=== PATIENT | female | born 1995 | race Caucasian/White ===

== ENCOUNTER 2018-10-24 14:05 | Emergency (ER) | payer OTHER ==
--- NOTE | 2018-10-24 14:19 | Emergency Department Report ---
Blank Doc - Documentation Documentation: 23 y/o female c/o lower abd pain, Nausea and vomiting. Miss 2. No fever.
[2018-10-24 15:37] LABS: Bilirubin,Urine NEG (Negative); Blood,Urine NEG (Negative); Color,Urine Yellow (Yellow); Mucus,Urine 2+ /HPF; Protein,Urine <15 mg/dL mg/dL (Negative); Urobilinogen,Urine < 2.0 mg/dL (<2.0)
--- NOTE | 2018-10-24 15:47 | Emergency Department Report ---
HPI - General Chief Complaint: Nausea/Vomiting/Diarrhea Time Seen by Provider: 10/24/18 15:17 - HPI HPI: 23-year-old female presents to the emergency department with a 4 day history of some lower abdominal pain, nausea and vomiting. The patient states that she may be as her last menstrual cycle was in August. If she is she will be with 2 previous miscarriages. Otherwise she denies any past medical history. No recent travel or sick contacts at home. She denies any fever, vaginal bleeding or discharge, dysuria but does have some diarrhea. She has not taken anything for her symptoms prior to arrival today. ED Past Medical Hx - Past Medical History Previous Medical History?: No - Surgical History Past Surgical History?: No - Social History Smoking Status: Never Smoker ED Review of Systems ROS: Stated complaint: VOMITTING/LOWER ABD PAIN Other details as noted in HPI Comment: All other systems reviewed and negative Constitutional: denies: chills, fever Eyes: denies: eye pain, vision change ENT: denies: ear pain, throat pain Respiratory: denies: cough, shortness of breath Cardiovascular: denies: chest pain, palpitations Gastrointestinal: abdominal pain, nausea, vomiting, diarrhea Genitourinary: denies: dysuria, discharge Musculoskeletal: denies: back pain, arthralgia Skin: denies: rash, lesions Neurological: denies: headache, weakness Physical Exam - Physical Exam Vital Signs: Vital Signs 10/24/18 10/24/18 14:23 15:24 Temperature 98.0 F 98.1 F Pulse Rate 81 Respiratory 16 Rate Blood Pressure 119/58 O2 Sat by Pulse 99 Oximetry Physical Exam: GENERAL: The patient is well-developed well-nourished. HENT: Normocephalic. Atraumatic. Patient has moist mucous membranes. EYES: Extraocular motions are intact. NECK: Supple. Trachea is midline. CHEST/LUNGS: Clear to auscultation. There is no respiratory distress noted. HEART/CARDIOVASCULAR: Regular. There is no tachycardia. There is no murmur. ABDOMEN: Abdomen is soft. There is some mid to lower abdominal tenderness to palpation. No guarding. Patient has normal bowel sounds. There is no abdominal distention. SKIN: Skin is warm and dry. NEURO: The patient is awake, alert, and oriented. The patient is cooperative. The patient has no focal neurologic deficits. The patient has normal speech. MUSCULOSKELETAL: There is no tenderness or deformity. There is no limitation range of motion. There is no evidence of acute injury. ED Course Vital Signs 10/24/18 10/24/18 14:23 15:24 Temperature 98.0 F 98.1 F Pulse Rate 81 Respiratory 16 Rate Blood Pressure 119/58 O2 Sat by Pulse 99 Oximetry ED Medical Decision Making - Lab Data Result diagrams: 10/24/18 15:47 10/24/18 15:47 - Radiology Data Radiology results: report reviewed Transvaginal/ ultrasound shows a live intrauterine at about 8 weeks and 4 days. There is a small left ovarian cyst that could be consistent with a corpus luteum. - Medical Decision Making Patient presents to the emergency department with complaint of abdominal pain, n ausea, vomiting and suspicion of being . The patient was correct and she had a beta hCG of greater than 120,000. An ultrasound was done that shows a live intrauterine at about 8.5 weeks and a corpus luteum cyst or small left ovarian cyst. Patient's labs have otherwise been unremarkable. Vital signs stable throughout her ED course including being afebrile. There are no complaints of any dysuria, vaginal bleeding or vaginal discharge. The patient did not receive any antiemetics and there has been no further vomiting while in the emergency department. She was able to pass oral challenge. She appears safe for discharge home at this time and has been given multiple outpatient [facility] referrals. She will return to the ER with any worsening of her symptoms or any acute distress. - Differential Diagnosis , colitis, UTI, fibroids Critical Care Time: No Critical care attestation.: If time is entered above; I have spent that time in minutes in the direct care of this critically ill patient, excluding procedure time. ED Disposition Clinical Impression: Nausea & vomiting Qualifiers: Vomiting type: unspecified Vomiting Intractability: unspecified Qualified Code(s): R11.2 - Nausea with vomiting, unspecified Abdominal pain Qualifiers: Abdominal location: lower abdomen, unspecified Qualified Code(s): R10.30 - Lower abdominal pain, unspecified Qualifiers: Weeks of gestation: 8 weeks Qualified Code(s): Z3A.08 - 8 weeks gestation of Disposition: DC-01 TO HOME OR SELFCARE Is pt being admited?: No Condition: Stable Instructions: (ED), Acute Nausea and Vomiting (ED), Abdominal Pain (ED) Additional Instructions: Please follow up with an [facility] in the next few days. Return to the emergency Department with any worsening of your symptoms or any acute distress. Referrals: [facility] [Provider Group] - 3-5 Days [facility] [Provider Group] - 3-5 Days [facility] [Provider Group] - 3-5 Days [facility] [Provider Group] - 3-5 Days Time of Disposition: 18:40 Print Language: MONTENEGRIN
[2018-10-24 16:05] LABS: Basophils % (Auto) 0.4 % (0.0-1.8); Eosinophils # (Auto) 0.1 K/mm3 (0.0-0.4); Eosinophils % (Auto) 1.3 % (0.0-4.3); Hematocrit 40.7 % (30.3-42.9); Hemoglobin 13.5 gm/dl (10.1-14.3); Lymphocytes # (Auto) 1.8 K/mm3 (1.2-5.4); Lymphocytes % (Auto) 20.2 % (13.4-35.0); Mean Corpuscular HGB Conc 33 % (30-34); Mean Corpuscular Volume 91 fl (79-97); Monocytes # (Auto) 0.6 K/mm3 (0.0-0.8); Monocytes % (Auto) 7.2 % (0.0-7.3); Platelet Count 347 K/mm3 (140-440); Red Blood Count 4.48 M/mm3 (3.65-5.03)
[2018-10-24 16:35] LABS: Alanine Aminotransferase 14 units/L (7-56); Albumin 4.2 g/dL (3.9-5); BUN/Creatinine Ratio 28; Blood Urea Nitrogen 11 mg/dL (7-17); Calcium 9.3 mg/dL (8.4-10.2); Hemolysis Index 5
--- NOTE | 2018-10-24 18:04 | Ultrasound Report ---
PROCEDURE: US OB TRANSVAGINAL TECHNIQUE: Real-time transvaginal sonography of the uterus, placenta, amniotic fluid, adnexa, and fe tus was performed with image documentation. Measurements were obtained to determine age/size. M -mode Doppler was used to document heartbeat. HISTORY: abdominal pain, COMPARISONS: Transabdominal OB ultrasound . FINDINGS: This report was generated using images from both transvaginal and transabdominal OB ultraso und both which were performed today. There is a single living intrauterine gestation present with heart rate of 176 bpm. Fetus curre ntly too small to assess anatomy. No gross abnormalities visualized. [place]-rump length measurement 2 cm corresponds to an age of 8 weeks 4 days. The sac is visualized. Amount of amniotic fluid appears n ormal. No evidence of subchorionic hemorrhage. No uterine masses are identified. Right ovary is unremarkable measuring 2.7 x 1.0 x 2.8 cm. Left ovary measures 3.9 x 2.3 x 2.3 cm. 1.6 cm complex cystic lesion visualized left ovary. There appears to be a cyst within a cyst. I suspect this represents corpus luteum cyst of . Left ovary is otherwise unremarkable. IMPRESSION: Single living intrauterine gestation visualized. By [place]-rump length measurement the estimated age i s 8 weeks 4 days. [address] the EDC at 06/01/2019 +/- 0.5 weeks. No evidence of subchorionic hemorrh age. Small cyst visualized left ovary likely representing corpus luteum cyst . Fetus currently too small to assess anatomy. No gross abnormalities seen. Consider follow-up exam at 18-20 weeks to evaluate anatomy. This document is electronically signed by Erickson Carias MD., Oct 24 2018 06:02:50 PM ET
--- NOTE | 2018-10-24 18:06 | Ultrasound Report ---
PROCEDURE: US OB <= 14 WEEKS FETUS TECHNIQUE: Real-time transabdominal sonography of the uterus, placenta, amniotic fluid, adnexa, and fetus was performed with image documentation. Measurements were obtained to determine age/size. M-mode Doppler was used to document heartbeat. ADDITIONAL GESTATION: None. HISTORY: abdominal pain, COMPARISONS: Transvaginal OB ultrasound also performed today. . FINDINGS: This report was generated using images from both transvaginal and transabdominal OB ultraso und both which were performed today. There is a single living intrauterine gestation present with heart rate of 176 bpm. Fetus curre ntly too small to assess anatomy. No gross abnormalities visualized. [place]-rump length measurement 2 cm corresponds to an age of 8 weeks 4 days. The sac is visualized. Amount of amniotic fluid appears n ormal. No evidence of subchorionic hemorrhage. No uterine masses are identified. Right ovary is unremarkable measuring 2.7 x 1.0 x 2.8 cm. Left ovary measures 3.9 x 2.3 x 2.3 cm. 1.6 cm complex cystic lesion visualized left ovary. There appears to be a cyst within a cyst. I suspect this represents corpus luteum cyst of . Left ovary is otherwise unremarkable. IMPRESSION: Single living intrauterine gestation visualized. By crown-rump length measurement the estimated age i s 8 weeks 4 days. This places the EDC at 06/01/2019 +/- 0.5 weeks. No evidence of subchorionic hemorrh age. Small cyst visualized left ovary likely representing corpus luteum cyst . Fetus currently too small to assess anatomy. No gross abnormalities seen. Consider follow-up exam at 18-20 weeks to evaluate anatomy. This document is electronically signed by Erickson Carias MD., Oct 24 2018 06:04:09 PM ET
[2018-10-24 18:33] VITALS: BP 124/59
== END 2018-10-24 18:52 | disposition home or self-care (01) ==
LOC: ED 14:05
DX: O26.891 Other specified pregnancy related conditions, first trimester (principal); Z3A.01 Less than 8 weeks gestation of pregnancy
CPT/HCPCS: 36415; 76801; 76817; 80053; 81001; 83690; 84702; 85025

== ENCOUNTER 2019-03-31 05:09 | Outpatient (CLI) | payer SELFPAY ==
[2019-03-31] MEDS ORDERED: LACTATED RINGERS 1,000 ML IV ONE (06:07)
[2019-03-31 06:44] LABS: Bilirubin,Urine NEG (Negative); Blood,Urine LG (Negative); Color,Urine Red (Yellow); Mucus,Urine FEW /HPF; Urobilinogen,Urine < 2.0 mg/dL (<2.0)
[2019-03-31 06:46] LABS: RBC,Urine > 182.0 /HPF (0.0-6.0)
[2019-03-31] MEDS ORDERED: LACTATED RINGERS 1,000 ML IV SCH (08:00)
[2019-03-31] MEDS ORDERED: ceFAZolin 2 GM in NACL 0.9% 100 ML IV ONE (08:00)
--- NOTE | 2019-03-31 08:05 | Ultrasound Report ---
ULTRASOUND OB LIMITED HISTORY: Vaginal bleeding TECHNIQUE: Transabdominal ultrasound with M-mode and color Doppler imaging. COMPARISON: 10/24/2018. FINDINGS: Single intrauterine is identified in cephalic position. heart rate measures 151 bpm. ABDULLAHI measures 16.2. The placenta is anterior, grade 1 and free of the cervical os. No subplacental collection to suggest abruption is identified. IMPRESSION: Viable, single intrauterine as described. No evidence for abruption. Signer Name: Matt Rossi Jr, MD Signed: 03/31/2019 8:00 AM Workstation Name: [id number]
[2019-03-31] MEDS ORDERED: ANCEF/STERILE WATER 2 GM/20 ML 2 GM/20 ML SYRINGE IV ONE (08:17)
[2019-03-31] MEDS ORDERED: BRETHINE SUB-Q NR (08:24)
[2019-03-31 08:54] VITALS: BP 103/59
== END 2019-03-31 10:00 | disposition home or self-care (01) ==
LOC: TRG 05:09
PROVIDERS: ATTEND Obstetrics & Gynecology
DX: O46.93 Antepartum hemorrhage, unspecified, third trimester (principal); O62.9 Abnormality of forces of labor, unspecified; Z3A.31 31 weeks gestation of pregnancy
CPT/HCPCS: 59025; 76815; 81001; 87086; 96361; 96372; 96374; J0690; J3105; J7120; 96360

== ENCOUNTER 2019-05-26 23:53 | Outpatient (CLI) | payer SELFPAY ==
[2019-05-27 03:29] VITALS: BP 118/67
== END 2019-05-27 03:52 | disposition home or self-care (01) ==
LOC: TRG 23:53
PROVIDERS: ATTEND Obstetrics & Gynecology
DX: O47.1 False labor at or after 37 completed weeks of gestation (principal); Z3A.39 39 weeks gestation of pregnancy
CPT/HCPCS: 59025

== ENCOUNTER 2019-05-27 07:05 | Inpatient (IN) | payer OTHER ==
[2019-05-27] MEDS ORDERED: OXYTOCIN DRIP 30 UNITS/500 ML BAG IV SCH ×2 (08:30→09:00)
[2019-05-27] MEDS ORDERED: MINERAL OIL 30 ML ORAL LIQD PO PRN (08:30)
[2019-05-27] MEDS ORDERED: LIDOCAINE (2%) 20 MG/1 ML VIAL 20 ML MDV INFILTRATI NR (08:30)
[2019-05-27] MEDS ORDERED: TERBUTALINE 1 MG/1 ML INJ IVP PRN (08:30)
[2019-05-27] MEDS ORDERED: ePHEDrine SULFATE 50 MG/1 ML INJ IV PRN ×2 (08:30→10:05)
[2019-05-27] MEDS ORDERED: OXYTOCIN 20 UNIT/1000ML DRIP 20 UNITS/1,000 ML BAG IV SCH ×3 (08:30→23:00)
[2019-05-27] MEDS ORDERED: TERBUTALINE 1 MG/1 ML INJ SUB-Q PRN (09:00)
[2019-05-27] MEDS: LACTATED RINGERS 1,000 ML IV SCH ×3 (09:07→17:46)
--- NOTE | 2019-05-27 09:12 | History and Physical Report ---
History of Present Illness Date of examination: 05/27/19 Date of admission: 05/27/2019 Chief complaint: Contractions at term. History of present illness: . STEVEN[place] 05/31/2019 Past History Past Medical History: no pertinent history - Obstetrical History : 3 Medications and Allergies Allergies Allergy/AdvReac Type Severity Reaction Status Date / Time No Known Allergies Allergy Verified 05/27/19 07:50 Home Medications Medication Instructions Recorded Confirmed Last Taken Type No Known Home Medications [No 05/27/19 05/27/19 Unknown History Reported Home Medications] Active Meds: Active Medications Ephedrine Sulfate (Ephedrine Sulfate) 10 mg IV Q2M PRN PRN Reason: Hypotension Oxytocin/Sodium Chloride (Pitocin/Ns 20 Unit/1000ml Drip) 20 units in 1,000 mls @ 125 mls/hr IV DIRECT ELPIDIO Oxytocin/Sodium Chloride (Pitocin/Ns 30 Unit/500ml) 30 units in 500 mls @ 1 mls/hr IV TITR ELPIDIO; Protocol Oxytocin/Sodium Chloride (Pitocin/Ns 30 Unit/500ml) 30 units in 500 mls @ 2 mls/hr IV TITR ELPIDIO; Protocol Lactated Ringer's (Lactated Ringers) 1,000 mls @ 125 mls/hr IV DIRECT ELPIDIO Last Admin: 05/27/19 09:07 Dose: 125 mls/hr Documented by: Lidocaine (Xylocaine 2%) 20 ml INFILTRATI ONCE NR Stop: 05/28/19 08:29 Mineral Oil (Mineral Oil) 30 ml PO QHS PRN PRN Reason: Constipation Terbutaline Sulfate (Brethine) 0.25 mg SUB-Q ONCE PRN PRN Reason: Hyperstimulation/Hypertonicity Terbutaline Sulfate (Brethine) 0.25 mg IVP ONCE PRN PRN Reason: Hyperstimulation/Hypertonicity Review of Systems All systems: negative - Vital Signs Vital signs: Vital Signs Pulse Pulse Ox 100 H 98 05/27/19 08:39 05/27/19 08:39 Temp Pulse Resp BP Pulse Ox 95 H 94 05/27/19 08:41 05/27/19 08:41 - Physical Exam Breasts: Positive: deferred Lungs: Positive: Normal air movement Abdomen: Positive: soft, distention. Negative: tenderness, guarding Vulva: both: normal Uterus: Positive: normal size, enlarged, normal contour. Negative: tender - Obstetrical FHR: category 1 Uterine Contraction Monitor Mode: External Cervical Dilatation: 6 Cervical Effacement Percentage: 100 station: 0-2 Uterine Contraction Frequency (min): 2-3 Uterine Contraction Pattern: Regular Uterine Contraction Intensity: Strong/Firm Results All other labs normal. Assessment and Plan - Patient Problems (1) Short stature Current Visit: Yes Status: Acute (2) Active labor at term Current Visit: Yes Status: Acute Plan to address problem: Patient was admitted. My impression upon vaginal exam and pelvimetry is of a borderline pelvis in a short-statured patient matched against a fetus in the 8lbs range. Discussed this with patient through a solderer dipper. Will allow 4 hrs to test decent of fetus as long as all other things remain stable.
[2019-05-27 09:27] LABS: Hemoglobin 12.1 gm/dl (10.1-14.3); Mean Corpuscular HGB Conc 34 % (30-34); Mean Corpuscular Volume 90 fl (79-97); Platelet Count 255 K/mm3 (140-440); Red Blood Count 4.02 M/mm3 (3.65-5.03); Red Cell Distribution Width 14.6 % (13.2-15.2)
[2019-05-27] MEDS ORDERED: NALOXONE 2 MG/2 ML INJ IV PRN (10:05)
--- NOTE | 2019-05-27 10:05 | Anesthesia Consultation ---
Anesthesia Consult and Med Hx Date of service: 05/27/19 - Airway Anesthetic Teeth Evaluation: Good ROM Head & Neck: Adequate Mental/Hyoid Distance: Adequate Mallampati Class: Class II Intubation Access Assessment: Good - Pulmonary Exam CTA: Yes - Cardiac Exam Cardiac Exam: RRR - Pre-Operative Health Status ASA Pre-Surgery Classification: ASA2, Emergency Proposed Anesthetic Plan: Epidural - Pulmonary Hx Asthma: No - Cardiovascular System Hx Hypertension: No - Central Nervous System Hx Seizures: No Hx Psychiatric Problems: No - Endocrine Hx Renal Disease: No Hx Hypothyroidism: No Hx Hyperthyroidism: No - Hematic Hx Anemia: No Hx Sickle Cell Disease: No - Other Systems Hx Alcohol Use: No
[2019-05-27] MEDS ORDERED: fentaNYL-BUPIV 2 MCG/ML-0.125% 200 MCG/100 ML BAG EPIDURAL SCH (11:00)
--- NOTE | 2019-05-27 12:32 | Progress Note ---
Assessment and Plan A: IUP @ 39 3/7 Weeks Category I Tracing Protracted Labor GBS Negative P: IUPC placed Start Pitocin Augmentation Multiple Maternal Position Changes Subjective - Subjective Date of service: 05/27/19 Patient reports: other (Resting well under epidural anesthesia) Objective - Vital Signs Vital Signs: Vital Signs - 12hr 05/27/19 05/27/19 05/27/19 08:39 08:41 10:18 Pulse Rate 100 H 95 H 104 H Respiratory Rate Blood Pressure O2 Sat by Pulse 98 94 99 Oximetry 05/27/19 05/27/19 05/27/19 10:23 10:28 10:29 Pulse Rate 94 H 93 H 93 H Respiratory Rate Blood Pressure 123/67 O2 Sat by Pulse 98 98 Oximetry 05/27/19 05/27/19 05/27/19 10:33 10:34 10:37 Pulse Rate 97 H 93 H 81 Respiratory Rate Blood Pressure 118/60 127/62 O2 Sat by Pulse 99 93 Oximetry 05/27/19 05/27/19 05/27/19 10:38 10:40 10:42 Pulse Rate 85 86 77 Respiratory Rate Blood Pressure 116/58 121/63 O2 Sat by Pulse 98 Oximetry 05/27/19 05/27/19 05/27/19 10:43 10:46 10:48 Pulse Rate 93 H 75 92 H Respiratory Rate Blood Pressure 119/62 130/68 O2 Sat by Pulse 97 97 Oximetry 05/27/19 05/27/19 05/27/19 10:49 10:52 10:53 Pulse Rate 77 72 74 Respiratory Rate Blood Pressure 127/65 126/65 O2 Sat by Pulse 96 Oximetry 05/27/19 05/27/19 05/27/19 10:55 10:58 11:01 Pulse Rate 70 80 74 Respiratory Rate Blood Pressure 120/61 114/58 120/64 O2 Sat by Pulse 96 Oximetry 05/27/19 05/27/19 05/27/19 11:03 11:04 11:07 Pulse Rate 76 77 108 H Respiratory Rate Blood Pressure 116/66 108/58 O2 Sat by Pulse 98 Oximetry 05/27/19 05/27/19 05/27/19 11:08 11:09 11:10 Pulse Rate 70 69 73 Respiratory Rate Blood Pressure 115/62 O2 Sat by Pulse 98 94 Oximetry 05/27/19 05/27/19 05/27/19 11:13 11:16 11:18 Pulse Rate 69 78 72 Respiratory Rate Blood Pressure 120/64 125/71 O2 Sat by Pulse 95 97 Oximetry 05/27/19 05/27/19 05/27/19 11:20 11:22 11:23 Pulse Rate 85 77 96 H Respiratory Rate Blood Pressure 114/58 116/68 O2 Sat by Pulse 97 Oximetry 05/27/19 05/27/19 05/27/19 11:26 11:28 11:29 Pulse Rate 72 90 83 Respiratory Rate Blood Pressure 132/64 111/62 O2 Sat by Pulse 99 Oximetry 05/27/19 05/27/19 05/27/19 11:32 11:33 11:34 Pulse Rate 72 74 73 Respiratory Rate Blood Pressure 129/65 127/65 O2 Sat by Pulse 98 Oximetry 05/27/19 05/27/19 05/27/19 11:37 11:38 11:40 Pulse Rate 72 74 75 Respiratory Rate Blood Pressure 131/67 123/67 O2 Sat by Pulse 98 Oximetry 05/27/19 05/27/19 05/27/19 11:43 11:46 11:48 Pulse Rate 73 76 74 Respiratory Rate Blood Pressure 126/72 144/77 O2 Sat by Pulse 98 99 Oximetry 05/27/19 05/27/19 05/27/19 11:49 11:52 11:53 Pulse Rate 75 72 84 Respiratory Rate Blood Pressure 139/70 144/75 O2 Sat by Pulse 97 Oximetry 05/27/19 05/27/19 05/27/19 11:55 11:57 11:58 Pulse Rate 75 74 Respiratory 24 Rate Blood Pressure 132/69 132/69 153/72 O2 Sat by Pulse 99 Oximetry 05/27/19 05/27/19 05/27/19 12:01 12:03 12:05 Pulse Rate 82 83 76 Respiratory Rate Blood Pressure 153/72 134/65 O2 Sat by Pulse 98 Oximetry 05/27/19 05/27/19 05/27/19 12:07 12:08 12:10 Pulse Rate 86 81 79 Respiratory Rate Blood Pressure 135/65 141/71 O2 Sat by Pulse 99 Oximetry 05/27/19 05/27/19 05/27/19 12:13 12:15 12:16 Pulse Rate 84 83 78 Respiratory Rate Blood Pressure 149/72 130/65 130/66 O2 Sat by Pulse 99 Oximetry 05/27/19 05/27/19 05/27/19 12:18 12:20 12:22 Pulse Rate 92 H 88 79 Respiratory Rate Blood Pressure 122/57 124/59 O2 Sat by Pulse 99 Oximetry 05/27/19 05/27/19 12:23 12:25 Pulse Rate 86 74 Respiratory Rate Blood Pressure 127/72 O2 Sat by Pulse 98 Oximetry - Exam Breasts: normal Cardiovascular: Regular rate Lungs: Clear to auscultation, Normal air movement Abdomen: Present: normal appearance, soft Uterus: Present: normal, firm, fundal height above umbilicus FHR: category 1 Uterine Contraction Monitor Mode: Internal Cervical Dilatation: 9 (leaking a moderate amount of clear fluid) Cervical Effacement Percentage: 100 station: 0 Uterine Contraction Pattern: Irregular Uterine Contraction Intensity: Moderate Extremities: normal - Labs Labs: Abnormal Labs 05/27/19 08:42 WBC 19.8 H Laboratory Results - last 24 hr 05/27/19 05/27/19 08:42 08:42 WBC 19.8 H RBC 4.02 Hgb 12.1 Hct 36.0 MCV 90 MCH 30 MCHC 34 RDW 14.6 Plt Count 255 Blood Type A POSITIVE Antibody Screen TNR CINTHYA Antibody Screen Negative
--- NOTE | 2019-05-27 14:33 | Progress Note ---
Subjective - Subjective Date of service: 05/27/19 Principal diagnosis: arrest of descent Interval history: Patient with prolonged labor, arrest of descent cervical exam 10/100%/-1, ~3-4 cm of caput no descent with pushing prolonged variable to 90bpm plan for delivery Indiction: NRFHT, arrest of descent informed consent obtained NPO to OR for procedure anesthesia notified Dandy James MD Patient reports: other (Resting well under epidural anesthesia) Objective - Vital Signs Vital Signs: Vital Signs - 12hr 05/27/19 05/27/19 05/27/19 08:39 08:41 10:18 Temperature Pulse Rate 100 H 95 H 104 H Respiratory Rate Blood Pressure Blood Pressure [Left] O2 Sat by Pulse 98 94 99 Oximetry 05/27/19 05/27/19 05/27/19 10:23 10:28 10:29 Temperature Pulse Rate 94 H 93 H 93 H Respiratory Rate Blood Pressure 123/67 Blood Pressure [Left] O2 Sat by Pulse 98 98 Oximetry 05/27/19 05/27/19 05/27/19 10:33 10:34 10:37 Temperature Pulse Rate 97 H 93 H 81 Respiratory Rate Blood Pressure 118/60 127/62 Blood Pressure [Left] O2 Sat by Pulse 99 93 Oximetry 05/27/19 05/27/19 05/27/19 10:38 10:40 10:42 Temperature Pulse Rate 85 86 77 Respiratory Rate Blood Pressure 116/58 121/63 Blood Pressure [Left] O2 Sat by Pulse 98 Oximetry 05/27/19 05/27/19 05/27/19 10:43 10:46 10:48 Temperature Pulse Rate 93 H 75 92 H Respiratory Rate Blood Pressure 119/62 130/68 Blood Pressure [Left] O2 Sat by Pulse 97 97 Oximetry 05/27/19 05/27/19 05/27/19 10:49 10:52 10:53 Temperature Pulse Rate 77 72 74 Respiratory Rate Blood Pressure 127/65 126/65 Blood Pressure [Left] O2 Sat by Pulse 96 Oximetry 05/27/19 05/27/19 05/27/19 10:55 10:58 11:01 Temperature Pulse Rate 70 80 74 Respiratory Rate Blood Pressure 120/61 114/58 120/64 Blood Pressure [Left] O2 Sat by Pulse 96 Oximetry 05/27/19 05/27/19 05/27/19 11:03 11:04 11:07 Temperature Pulse Rate 76 77 108 H Respiratory Rate Blood Pressure 116/66 108/58 Blood Pressure [Left] O2 Sat by Pulse 98 Oximetry 05/27/19 05/27/19 05/27/19 11:08 11:09 11:10 Temperature Pulse Rate 70 69 73 Respiratory Rate Blood Pressure 115/62 Blood Pressure [Left] O2 Sat by Pulse 98 94 Oximetry 05/27/19 05/27/19 05/27/19 11:13 11:16 11:18 Temperature Pulse Rate 69 78 72 Respiratory Rate Blood Pressure 120/64 125/71 Blood Pressure [Left] O2 Sat by Pulse 95 97 Oximetry 05/27/19 05/27/19 05/27/19 11:20 11:22 11:23 Temperature Pulse Rate 85 77 96 H Respiratory Rate Blood Pressure 114/58 116/68 Blood Pressure [Left] O2 Sat by Pulse 97 Oximetry 05/27/19 05/27/19 05/27/19 11:26 11:28 11:29 Temperature Pulse Rate 72 90 83 Respiratory Rate Blood Pressure 132/64 111/62 Blood Pressure [Left] O2 Sat by Pulse 99 Oximetry 05/27/19 05/27/19 05/27/19 11:32 11:33 11:34 Temperature Pulse Rate 72 74 73 Respiratory Rate Blood Pressure 129/65 127/65 Blood Pressure [Left] O2 Sat by Pulse 98 Oximetry 05/27/19 05/27/19 05/27/19 11:37 11:38 11:40 Temperature Pulse Rate 72 74 75 Respiratory Rate Blood Pressure 131/67 123/67 Blood Pressure [Left] O2 Sat by Pulse 98 Oximetry 05/27/19 05/27/19 05/27/19 11:43 11:46 11:48 Temperature Pulse Rate 73 76 74 Respiratory Rate Blood Pressure 126/72 144/77 Blood Pressure [Left] O2 Sat by Pulse 98 99 Oximetry 05/27/19 05/27/19 05/27/19 11:49 11:52 11:53 Temperature Pulse Rate 75 72 84 Respiratory Rate Blood Pressure 139/70 144/75 Blood Pressure [Left] O2 Sat by Pulse 97 Oximetry 05/27/19 05/27/19 05/27/19 11:55 11:57 11:58 Temperature Pulse Rate 75 74 Respiratory 24 Rate Blood Pressure 132/69 132/69 153/72 Blood Pressure [Left] O2 Sat by Pulse 99 Oximetry 05/27/19 05/27/19 05/27/19 12:01 12:03 12:05 Temperature Pulse Rate 82 83 76 Respiratory Rate Blood Pressure 153/72 134/65 Blood Pressure [Left] O2 Sat by Pulse 98 Oximetry 05/27/19 05/27/19 05/27/19 12:07 12:08 12:10 Temperature Pulse Rate 86 81 79 Respiratory Rate Blood Pressure 135/65 141/71 Blood Pressure [Left] O2 Sat by Pulse 99 Oximetry 05/27/19 05/27/19 05/27/19 12:13 12:15 12:16 Temperature Pulse Rate 84 83 78 Respiratory Rate Blood Pressure 149/72 130/65 130/66 Blood Pressure [Left] O2 Sat by Pulse 99 Oximetry 05/27/19 05/27/19 05/27/19 12:18 12:20 12:22 Temperature Pulse Rate 92 H 88 79 Respiratory Rate Blood Pressure 122/57 124/59 Blood Pressure [Left] O2 Sat by Pulse 99 Oximetry 05/27/19 05/27/19 05/27/19 12:23 12:25 12:28 Temperature Pulse Rate 86 74 73 Respiratory Rate Blood Pressure 127/72 125/68 Blood Pressure [Left] O2 Sat by Pulse 98 98 Oximetry 05/27/19 05/27/19 05/27/19 12:32 12:33 12:34 Temperature Pulse Rate 71 74 68 Respiratory Rate Blood Pressure 102/54 108/53 Blood Pressure [Left] O2 Sat by Pulse 98 Oximetry 05/27/19 05/27/19 05/27/19 12:37 12:38 12:40 Temperature Pulse Rate 82 74 78 Respiratory Rate Blood Pressure 110/57 103/50 Blood Pressure [Left] O2 Sat by Pulse 97 Oximetry 05/27/19 05/27/19 05/27/19 12:43 12:46 12:48 Temperature Pulse Rate 80 71 68 Respiratory Rate Blood Pressure 112/55 102/55 Blood Pressure [Left] O2 Sat by Pulse 98 97 Oximetry 05/27/19 05/27/19 05/27/19 12:49 12:52 12:53 Temperature Pulse Rate 65 78 86 Respiratory Rate Blood Pressure 101/52 101/56 Blood Pressure [Left] O2 Sat by Pulse 98 Oximetry 05/27/19 05/27/19 05/27/19 12:55 12:58 12:59 Temperature Pulse Rate 81 69 71 Respiratory Rate Blood Pressure 101/55 118/74 Blood Pressure [Left] O2 Sat by Pulse 98 Oximetry 05/27/19 05/27/19 05/27/19 13:03 13:22 13:29 Temperature Pulse Rate 80 67 71 Respiratory Rate Blood Pressure 124/67 Blood Pressure [Left] O2 Sat by Pulse 97 98 Oximetry 05/27/19 05/27/19 05/27/19 13:34 13:37 13:39 Temperature Pulse Rate 68 67 64 Respiratory Rate Blood Pressure 126/66 Blood Pressure [Left] O2 Sat by Pulse 97 98 Oximetry 05/27/19 05/27/19 05/27/19 13:44 13:49 13:53 Temperature Pulse Rate 68 71 86 Respiratory Rate Blood Pressure 115/65 Blood Pressure [Left] O2 Sat by Pulse 98 97 Oximetry 05/27/19 05/27/19 05/27/19 13:54 13:59 14:01 Temperature 98.3 F Pulse Rate 65 89 66 Respiratory 22 Rate Blood Pressure Blood Pressure 115/65 [Left] O2 Sat by Pulse 98 98 98 Oximetry 05/27/19 05/27/19 05/27/19 14:04 14:08 14:09 Temperature Pulse Rate 64 63 64 Respiratory Rate Blood Pressure 106/52 Blood Pressure [Left] O2 Sat by Pulse 98 98 Oximetry 05/27/19 05/27/19 05/27/19 14:14 14:19 14:22 Temperature Pulse Rate 66 70 65 Respiratory Rate Blood Pressure 111/56 Blood Pressure [Left] O2 Sat by Pulse 97 99 Oximetry 05/27/19 05/27/19 14:24 14:25 Temperature Pulse Rate 100 H 100 H Respiratory Rate Blood Pressure Blood Pressure [Left] O2 Sat by Pulse 94 93 Oximetry - Labs Labs: Abnormal Labs 05/27/19 08:42 WBC 19.8 H Laboratory Results - last 24 hr 05/27/19 05/27/19 08:42 08:42 WBC 19.8 H RBC 4.02 Hgb 12.1 Hct 36.0 MCV 90 MCH 30 MCHC 34 RDW 14.6 Plt Count 255 Blood Type A POSITIVE Antibody Screen TNR CINTHYA Antibody Screen Negative
[2019-05-27] MEDS ORDERED: ceFAZolin/Water 2 GM/20 ML 2 GM/20 ML SYRINGE IV ONE (14:39)
[2019-05-27] MEDS ORDERED: BUPIVACAINE/PF (0.5%) 5 MG/1 ML 10 ML VIAL INFILTRATI ONE (14:50)
[2019-05-27] MEDS ORDERED: ceFAZolin/Water 2 GM/20 ML 2 GM/20 ML SYRINGE IV NR (15:00)
[2019-05-27] MEDS ORDERED: METOCLOPRAMIDE 10 MG/2 ML INJ IV NR (15:00)
[2019-05-27] MEDS ORDERED: LACTATED RINGERS 1,000 ML IV SCH (15:00)
[2019-05-27] MEDS ORDERED: FAMOTIDINE 20 MG/2 ML INJ IV NR (15:00)
[2019-05-27] MEDS ORDERED: BICITRA ORAL LIQD 30ML PO NR (15:00)
[2019-05-27] MEDS ORDERED: ONDANSETRON 4 MG/2 ML INJ ONE (15:23)
[2019-05-27] MEDS ORDERED: WATER FOR IRRIG STERILE 1,500 ML BOTTLE IR ONE (15:28)
[2019-05-27] MEDS ORDERED: SODIUM CHLORIDE 0.9% IRR 1,500 ML BOTTLE IR ONE (15:28)
[2019-05-27] MEDS ORDERED: KETOROLAC 30 MG/1 ML INJ ONE (15:41)
[2019-05-27] MEDS ORDERED: PHENYLEPHRINE/NS 1,000 MCG/10 ML SYRINGE (OR USE) IV ONE (15:41)
[2019-05-27] MEDS ORDERED: OXYTOCIN 10 UNIT/1 ML INJ ONE (15:41)
[2019-05-27] MEDS ORDERED: PHENYLEPHRINE 10 MG/1 ML INJ SDV ONE (15:41)
[2019-05-27] MEDS ORDERED: miSOPROStol 200 MCG TAB ONE (15:55)
[2019-05-27] MEDS ORDERED: METHYLERGONOVINE MALEATE 0.2 MG/ML VIAL IM ONE (15:55)
--- NOTE | 2019-05-27 16:31 | Anesthesia Day of Surgery ---
Anesthesia Day of Surgery - Day of Surgery Patient Examined: Yes Patient H&P Reviewed: Yes Patient is NPO: Yes
[2019-05-27] MEDS ORDERED: NALOXONE 0.4 MG/1 ML INJ IV PRN ×2 (16:32→22:52)
[2019-05-27] MEDS ORDERED: PROMETHAZINE 25 MG TAB PO PRN (16:32)
[2019-05-27] MEDS ORDERED: PROMETHAZINE 25 MG RECT SUPP PR PRN (16:32)
[2019-05-27] MEDS ORDERED: HYDROmorphone 1 MG/1 ML INJ IV PRN ×2 (16:32)
[2019-05-27] MEDS ORDERED: ONDANSETRON 4 MG/2 ML INJ IV PRN (16:32)
--- NOTE | 2019-05-27 16:32 | Post Anesthesia Evaluation ---
- Post Anesthesia Evaluation Patient Participated: Yes Airway Patent: Yes Stable Respiratory Function: Yes Nausea/Vomiting: No Temp > 96.8F: Yes Pain Manageable: Yes Adequeate Hydration: Yes Anesthesia Complications: No Block Receding Appropriately: Yes Patient on Ventilator: No
--- NOTE | 2019-05-27 16:34 | Procedure Note ---
OB Delivery Note - Section Preop diagnosis: nonreassuring FHR tracing Postop diagnosis: same section procedure: primary low transverse Disposition: PACU Complications: none Narrative: Date of Surgery 05/27/2019 Preoperative Diagnosis: NRFHT, Arrest of Descent Postoperative Diagnosis: same Procedure: Primary Low-Transverse Section via Pfannenstiel Incision Surgeon: Dr. Dora James Bulk Sugar Handler: Scrub EBL 1200ml Fluid: 1000ml Urine 100ml Drains: [place] to [place] Findings: normal, uterus tubes and ovariesx2, Viable female weight 2824gms and 8,9. Patient was noted to be 10/100%/-1 but moderate caput and no descent with pushing. Contractions adequate with prolonged deceleration to 90bpm for 2 minutes with return to baseline. The decision was made for urgent delivery and informed consent obtained. The patient was taken to the OR and adequate epidural anesthesia obtained. The patient was placed in the lateral decubitus position with a leftward tilt. She was prepped and drapped in a sterile fashion. A time out was verified. A pfannenstiel incision was made and taken down sharply to the underlying fascia. The fascia was incised in the midline and extended laterally with curved Merchant scissors. the abdomen was entered bluntly and the bladder blade inserted. The vesico-uterine peritoneum was grasped with blunt forceps and incised in the midline with Metzenbaum scissors. The bladder flap was extended laterally sharply and the bladder flap created digitally. The bladder blade was reinserted. The uterine incision was made sharply with the scalpel and extended laterally bluntly. The vertex was delivered atrauamtically, no nuchal cord. The remainder of the delivery was atraumatic. The cord was clamped and cut and the baby handed to waiting seo intern staff. Cord gasses and cord blood obtained. The placenta was then delivered, the uterus exteriorized and cleared of all clots and debris. The uterine incision was closed in two layers of 0-Vicryl. The uterus was boggy and one dose of Methergine 0.2mg given IM. The abdomen was irrigated with warm normal saline and the uterus placed back in the abdomen. A second look at the uterine incision assured hemostasis. The peritoneum was closed with 3-0 Vicryl and the rectus muscles approximated with 2-0 Vicryl . The fascia closed with 0- Vicryl in a running fashion and the subcuticular structures closed with interrupted 0-Vicyl. The skin closed with dominique and a pressure dressing applied. Patient tolerated the procedure well, all sponge, needle and instrument counts correctx2. Mom and baby to PACU/Nursery in stable condition. Maximo FINK
[2019-05-27] MEDS ORDERED: WITCH HAZEL/ GLYCERIN PAD TP PRN (22:52)
[2019-05-27] MEDS ORDERED: MAGNESIUM HYDROXIDE (MOM) ORAL LIQD UDC PO PRN (22:52)
[2019-05-27] MEDS ORDERED: LANOLIN/ZINC/DIMETHICONE (LANSINOH) 7 GM TP PRN (22:52)
[2019-05-27] MEDS ORDERED: ACETAMINOPHEN 325 MG TAB PO PRN (22:52)
[2019-05-27] MEDS ORDERED: SIMETHICONE 80 MG CHEW TAB PO PRN (22:52)
[2019-05-27] MEDS ORDERED: MORPHINE 4 MG/1 ML INJ IV PRN (22:52)
[2019-05-28] MEDS: oxyCODONE /ACETAMINOPHEN 5-325MG TAB PO PRN ×3 (03:27→20:20)
[2019-05-28] MEDS: IBUPROFEN 800 MG TAB PO PRN ×2 (05:37→15:10)
[2019-05-28 11:36] LABS: Hemoglobin 8.8 gm/dl (10.1-14.3)
--- NOTE | 2019-05-28 12:03 | Progress Note ---
Assessment and Plan A: POD#1 s/p Primary C/S Pain well controlled Stable P: Continue routine PP/PO orders Abdominal binder Anticipate discharge home 24-48 hrs Subjective - Subjective Date of service: 05/28/19 Principal diagnosis: POD#1 s/p Primary c/s Interval history: See H&P and operative note Patient reports: appetite normal, voiding normally, pain well controlled, flatus, ambulating normally, no bowel movement [place]: doing well, other (Breast/bottle) Objective - Vital Signs Latest vital signs: Vital Signs Temp Pulse Resp BP BP Pulse Ox 05/28/19 08:14 98.4 F 18 88/45 05/28/19 05:37 18 05/28/19 05:03 98.2 F 85 20 94/49 99 05/28/19 03:27 18 05/28/19 00:05 98.3 F 103 H 20 105/63 99 05/27/19 23:13 19 05/27/19 21:35 18 05/27/19 20:26 98.2 F 74 20 106/48 97 05/27/19 18:31 98.9 F 66 16 99/55 100 05/27/19 17:30 98.8 F 77 16 106/57 100 05/27/19 17:20 75 14 120/54 100 05/27/19 17:05 59 L 14 96/46 100 05/27/19 16:50 63 16 132/47 100 05/27/19 16:35 63 16 117/49 100 05/27/19 16:30 64 16 111/50 100 05/27/19 16:27 97.7 F 63 16 98/57 100 05/27/19 14:52 75 114/61 05/27/19 14:44 68 99 05/27/19 14:39 70 99 05/27/19 14:37 66 108/55 05/27/19 14:34 71 99 05/27/19 14:29 76 97 05/27/19 14:25 100 H 93 05/27/19 14:24 100 H 94 05/27/19 14:22 65 111/56 05/27/19 14:19 70 99 05/27/19 14:14 66 97 05/27/19 14:09 64 98 05/27/19 14:08 63 106/52 05/27/19 14:04 64 98 05/27/19 14:01 98.3 F 66 22 115/65 98 05/27/19 13:59 89 98 05/27/19 13:54 65 98 05/27/19 13:53 86 115/65 05/27/19 13:49 71 97 05/27/19 13:44 68 98 05/27/19 13:39 64 98 05/27/19 13:37 67 126/66 05/27/19 13:34 68 97 05/27/19 13:29 71 98 05/27/19 13:22 67 124/67 05/27/19 13:03 80 97 05/27/19 12:59 71 118/74 05/27/19 12:58 69 98 05/27/19 12:55 81 101/55 05/27/19 12:53 86 98 05/27/19 12:52 78 101/56 05/27/19 12:49 65 101/52 05/27/19 12:48 68 97 05/27/19 12:46 71 102/55 05/27/19 12:43 80 112/55 98 05/27/19 12:40 78 103/50 05/27/19 12:38 74 97 05/27/19 12:37 82 110/57 05/27/19 12:34 68 108/53 05/27/19 12:33 74 98 05/27/19 12:32 71 102/54 05/27/19 12:28 73 125/68 98 05/27/19 12:25 74 127/72 05/27/19 12:23 86 98 05/27/19 12:22 79 124/59 05/27/19 12:20 88 122/57 05/27/19 12:18 92 H 99 05/27/19 12:16 78 130/66 05/27/19 12:15 83 130/65 05/27/19 12:13 84 149/72 99 05/27/19 12:10 79 141/71 05/27/19 12:08 81 99 05/27/19 12:07 86 135/65 05/27/19 12:05 76 134/65 05/27/19 12:03 83 98 05/27/19 12:01 82 153/72 Intake and Output 05/27/19 05/28/19 05/28/19 23:59 07:59 15:59 Intake Total 3240 Output Total 925 1000 Balance 2315 -1000 Intake: IV 3000 Lactated Ringers 1,000 ml 1000 @ 125 mls/hr IV DIRECT ELPIDIO Rx#:[id number] Oral 240 Output: Urine 925 1000 Indwelling Catheter 600 Void 1000 Other: Total, Intake Amount 240 Total, Output Amount 600 600 Estimated Blood Loss 1,200 - Exam Breasts: Present: normal, Cardiovascular: Present: Regular rate, Normal S1, Normal S2, No murmurs Lungs: Present: Clear to auscultation, Normal air movement Abdomen: Present: normal appearance, soft, tenderness (as expected post-op), normal bowel sounds. Absent: distention Vulva: both: normal Uterus: Present: firm, fundal height at umbilicus Extremities: Present: normal Deep Tendon Reflex Grade: Normal +2 Incision: Present: normal, dry, intact, dressed (Pressure dressing CDI) - Labs Labs: Abnormal lab results 05/27/19 05/27/19 05/28/19 Range/Units 16:01 16:05 10:45 Hgb 8.8 L D (10.1-14.3) gm/dl Hct 26.0 L D (30.3-42.9) % POC ABG pH 7.301 L (7.35-7.45) POC ABG pCO2 30.2 L 48.4 H (35-45)
[2019-05-29] MEDS: oxyCODONE /ACETAMINOPHEN 5-325MG TAB PO PRN ×2 (04:57→11:17)
[2019-05-29] MEDS ORDERED: FERROUS SULFATE 325 MG TAB PO SCH (10:00)
--- NOTE | 2019-05-29 12:47 | Discharge Summary ---
Providers - Providers Date of Admission: 05/27/19 07:06 Date of discharge: 05/29/19 Attending physician: JENNIFER VALERA MD Primary care physician: JENNIFER VALERA MD Hospitalization Reason for admission: IUP at term Delivery: Procedure: primary low transverse (secondary to arrest of dilation) Episiotomy: none Laceration: none Incision: dry, intact (no drainage or bleeding noted) Other procedures: none complications: none Discharge diagnosis: other (S/P primary C/S; Anemia) baby: female Hospital course: See admission H & P; OB operative summary and PP progress notes Condition at discharge: Stable Disposition: DC-01 TO HOME OR SELFCARE - Discharge Diagnoses (1) S/P primary low transverse Status: Acute (2) Anemia Status: Acute Qualifiers: Anemia type: other cause Other causes of anemia: acute posthemorrhagic Qualified Code(s): D62 - Acute posthemorrhagic anemia Plan - Discharge Medications Prescriptions: Ferrous Sulfate [Feosol 325 MG tab] 325 mg PO BID 30 Days #60 tablet - Provider Discharge Summary Activity: routine, no sex for 6 weeks, no heavy lifting 4 weeks, no strenuous exercise Diet: other (Iron rich diet) Instructions: routine Additional instructions: [] Smoking cessation referral if applicable(refer to patient education folder for contact #) [] Refer to [facility] Booklet Call your doctor immediately for: * Fever > 100.5 * Heavy vaginal bleeding ( >1 pad per hour) * Severe persistent headache * Shortness of breath * Reddened, hot, painful area to leg or breast * Drainage or odor from incision. * Keep incision clean and dry at all times and follow doctor's instructions regarding bathing/showering - Follow up plan Follow up: JENNIFER VALERA MD [Primary Care Provider] - 7 Days
[2019-05-29] MEDS: IBUPROFEN 800 MG TAB PO PRN (16:58)
[2019-05-29 17:44] VITALS: BP 95/53
== END 2019-05-29 18:50 | disposition home or self-care (01) | DRG 787 ==
LOC: TRG 07:05 → LD 07:05 → TRG 07:06 → LD 07:06 → OB 18:28
PROVIDERS: ADMIT Obstetrics & Gynecology; ATTEND Obstetrics & Gynecology
PROC: 10D00Z1 Extraction of Products of Conception, Low, Open Approach (ICD-10-PCS; principal; 2019-05-27)
PROC: 10H07YZ Insertion of Other Device into Products of Conception, Via Natural or Artificial Opening (ICD-10-PCS; 2019-05-27)
DX: O62.0 Primary inadequate contractions (principal); D62 Acute posthemorrhagic anemia; O99.02 Anemia complicating childbirth; Z3A.39 39 weeks gestation of pregnancy; Z37.0 Single live birth
CPT/HCPCS: 36415; 82803; 85014; 85018; 85027; 86850; 86900; 86901; 88305; 88307; G0378; J0690; J1170; J1885; J2210; J2270; J2370; J2405; J2590; J7120

== ENCOUNTER 2020-09-07 18:06 | Emergency (ER) | payer SELFPAY ==
[2020-09-07 18:15] VITALS: BP 118/70
--- NOTE | 2020-09-07 18:17 | Event Note ---
ED Screening Note Date of service: 09/07/20 Time: 18:16 ED Screening Note: Patient complains of nausea vomiting and abdominal pain for the past few days Last menstrual cycle 07/14 This initial assessment/diagnostic orders/clinical plan/treatment(s) is/are subject to change based on patients health status, clinical progression and re- assessment by fellow clinical providers in the ED. Further treatment and workup at subsequent clinical providers discretion. Patient/guardian urged not to elope from the ED as their condition may be serious if not clinically assessed and managed. Initial orders include: Labs
[2020-09-07 18:33] LABS: Bilirubin,Urine NEG (Negative); Blood,Urine NEG (Negative); Color,Urine Yellow (Yellow); Mucus,Urine FEW /HPF; Protein,Urine <15 mg/dL mg/dL (Negative); Urobilinogen,Urine < 2.0 mg/dL (<2.0)
[2020-09-07 18:37] LABS: Basophils % (Auto) 0.3 % (0.0-1.8); Eosinophils # (Auto) 0.2 K/mm3 (0.0-0.4); Eosinophils % (Auto) 2.4 % (0.0-4.3); Hematocrit 36.4 % (30.3-42.9); Hemoglobin 12.6 gm/dl (10.1-14.3); Lymphocytes # (Auto) 2.5 K/mm3 (1.2-5.4); Lymphocytes % (Auto) 24.8 % (13.4-35.0); Mean Corpuscular HGB Conc 35 % (30-34); Mean Corpuscular Volume 90 fl (79-97); Monocytes # (Auto) 0.6 K/mm3 (0.0-0.8); Monocytes % (Auto) 6.5 % (0.0-7.3); Platelet Count 281 K/mm3 (140-440); Red Blood Count 4.06 M/mm3 (3.65-5.03); Red Cell Distribution Width 14.3 % (13.2-15.2)
[2020-09-07 18:59] LABS: Alanine Aminotransferase 15 units/L (7-56); Albumin 4.3 g/dL (3.9-5); Blood Urea Nitrogen 17 mg/dL (7-17); Calcium 9.2 mg/dL (8.4-10.2); Hemolysis Index 6
[2020-09-07 19:07] LABS: BUN/Creatinine Ratio 34
[2020-09-07] MEDS ORDERED: ACETAMINOPHEN 500 MG TAB PO ONE (19:53)
--- NOTE | 2020-09-07 20:11 | Emergency Department Report ---
ED Abdominal Pain HPI - General Chief Complaint: Abdominal Pain Stated Complaint: NAUSEA Time Seen by Provider: 09/07/20 18:14 Source: patient Mode of arrival: Ambulatory Limitations: Language Barrier - History of Present Illness Initial Comments: Patient is a A0 25-year-old female with no past medical history who presents to the ED with acute onset persistent diffuse low abdominal pain that radiates to the lower back for the last 2 days. Patient states that the pain has been persistent and constant and worse with any movement. Patient denies vaginal bleeding, dysuria, urinary frequency and urgency, vaginal discharge, nausea, vomiting, diarrhea, fever, chills, traumatic injury, heavy lifting, change in vision, dizziness, headache, neck pain, cough, chest pain or shortness of breath. MD Complaint: abdominal pain ( Diffuse lower abdominal pain), other (Low back pain) -: Sudden, days(s) (2) Location: suprapubic Radiation: suprapubic, back (Low back) Migration to: no migration Severity scale (0 -10): 5 Quality: cramping, aching, sharp Consistency: constant Improves With: nothing Worsens With: nothing Associated Symptoms: denies other symptoms. denies: nausea, vomiting, diarrhea, fever, chills, dysuria, hematemesis, hematochezia, melena - Related Data LMP (females 10-50): 1 month Previous Rx's Medication Instructions Recorded Last Taken Type Ferrous Sulfate [Feosol 325 MG tab] 325 mg PO BID 30 Days #60 tablet 05/29/19 Unknown Rx Acetaminophen [Tylenol] 500 mg PO Q6HR PRN #30 tablet 09/08/20 Unknown Rx Allergies Allergy/AdvReac Type Severity Reaction Status Date / Time No Known Allergies Allergy Verified 09/07/20 18:07 ED Review of Systems ROS: Stated complaint: NAUSEA Other details as noted in HPI Constitutional: denies: chills, fever Eyes: denies: eye pain, eye discharge, vision change ENT: denies: ear pain, throat pain Respiratory: denies: cough, shortness of breath, wheezing Cardiovascular: denies: chest pain, palpitations Endocrine: no symptoms reported Gastrointestinal: abdominal pain (Diffuse lower abdominal pain). denies: nausea, diarrhea Genitourinary: denies: urgency, dysuria, discharge Musculoskeletal: back pain (Low back pain). denies: joint swelling, arthralgia Skin: denies: rash, lesions Neurological: denies: headache, weakness, paresthesias Psychiatric: denies: anxiety, depression Hematological/Lymphatic: denies: easy bleeding, easy bruising ED Past Medical Hx - Past Medical History Previous Medical History?: No Hx Hypertension: No Hx Diabetes: No Hx Deep Vein Thrombosis: No Hx Renal Disease: No Hx Sickle Cell Disease: No Hx Seizures: No Hx Asthma: No Hx HIV: No - Surgical History Past Surgical History?: No - Social History Smoking Status: Never Smoker Substance Use Type: None - Medications Home Medications: Home Medications Medication Instructions Recorded Confirmed Last Taken Type Ferrous Sulfate [Feosol 325 MG tab] 325 mg PO BID 30 Days #60 tablet 05/29/19 Unknown Rx Acetaminophen [Tylenol] 500 mg PO Q6HR PRN #30 tablet 09/08/20 Unknown Rx ED Physical Exam - General Limitations: Language Barrier General appearance: alert, in no apparent distress - Head Head exam: Present: atraumatic, normocephalic, normal inspection - Eye Eye exam: Present: normal appearance, PERRL, EOMI Pupils: Present: normal accommodation - ENT ENT exam: Present: normal exam, normal orophraynx, mucous membranes moist, TM's normal bilaterally, normal external ear exam - Neck Neck exam: Present: normal inspection, full ROM - Respiratory Respiratory exam: Present: normal lung sounds bilaterally. Absent: respiratory distress, wheezes, rales, rhonchi, stridor, chest wall tenderness, accessory muscle use, decreased breath sounds - Cardiovascular Cardiovascular Exam: Present: regular rate, normal rhythm, normal heart sounds. Absent: systolic murmur, diastolic murmur, rubs, gallop - GI/Abdominal GI/Abdominal exam: Present: soft, tenderness (Palpable mild suprapubic tenderness), normal bowel sounds. Absent: guarding, rebound, hyperactive bowel sounds, organomegaly - Extremities Exam Extremities exam: Present: normal inspection, full ROM, normal capillary refill - Back Exam Back exam: Present: normal inspection, full ROM, tenderness, muscle spasm, paraspinal tenderness (Palpable lumbosacral paraspinal musculoskeletal tenderness). Absent: CVA tenderness (R) - Neurological Exam Neurological exam: Present: alert, oriented X3, CN II-XII intact, normal gait, reflexes normal - Psychiatric Psychiatric exam: Present: normal affect, normal mood, anxious - Skin Skin exam: Present: warm, dry, intact, normal color. Absent: rash ED Course Vital Signs 09/07/20 18:07 Temperature 98.3 F Pulse Rate 88 Respiratory 20 Rate Blood Pressure 118/70 O2 Sat by Pulse 100 Oximetry ED Medical Decision Making - Lab Data Result diagrams: 09/07/20 18:26 09/07/20 18:26 - Radiology Data Radiology results: report reviewed, image reviewed [facility] [address] [place] [address] Ultrasound Report Signed Patient: LINDSEY MIRELES MR#: [id number] : 1995 Acct:[id number] Age/Sex: 25 / F ADM Date: 09/07/20 Loc: ED Attending Dr: Ordering Physician: HARDY DA SILVA Date of Service: 09/07/20 Procedure(s): US OB <= 14 weeks fetus Accession Number(s): [id number] cc: HARDY DA SILVA US OB <= 14 weeks fetus INDICATION / CLINICAL INFORMATION: Pelvic pain - . TECHNIQUE: Transabdominal. COMPARISON: None available. FINDINGS: UTERUS: Appears within normal limits. GESTATIONAL SAC: Well-defined oval shape and intrauterine in location. YOLK SAC: No significant abnormality. EMBRYO/FETUS: - [place]-Rump Length = 3.2 cm - Heart Rate, beats per minute (if present) = 113 beats per minute ADNEXA: No significant abnormality. FREE FLUID: None. ADDITIONAL FINDINGS: None. IMPRESSION: 1. Single, living intrauterine with estimated sonographic age of 6 weeks 0 days. Signer Name: Jose Young MD Signed: 09/08/2020 12:08 AM Workstation Name: [id number] Transcribed By: CS Dictated By: Jose Young MD Electronically Authenticated By: Jose Young MD Signed Date/Time: 09/08/207 DD/ TD/TT: - Medical Decision Making This is a A0 25-year-old female with no past medical history who presents to the ED with acute onset persistent diffuse low abdominal pain that radiates to the lower back for the last 2 days. Patient states that the pain has been persistent and constant and worse with any movement. In the ED, patient is alert and oriented x3 and is not in any distress. Lab test results [place] [id number], and the rest of the lab test results are nonactionable including urinalysis. Patient was treated for pain with Tylenol in the ED. Transvaginal ultrasound showed a single IUP of approximately 6 weeks and 0 days with a heart rate of 113 bpm. On reevaluation, patient's pain is well controlled medications. Patient was therefore discharged home and advised to take Tylenol as needed for pain and maintain a complete pelvic rest, and to follow-up with [facility] physician in 5 to 7 days for reevaluation or return to the ED immediately if symptoms get worse. - Differential Diagnosis Ectopic ; UTI; ovarian cyst; PID; appendicitis; Critical care attestation.: If time is entered above; I have spent that time in minutes in the direct care of this critically ill patient, excluding procedure time. ED Disposition Clinical Impression: Abdominal pain during in first trimester Disposition: - TO HOME OR SELFCARE Is pt being admited?: No Does the pt Need Aspirin: No Condition: Stable Instructions: Abdominal Pain (ED), Abdominal Pain During , [id number] Additional Instructions: All lab test results were reviewed and are all nonactionable. The transvaginal ultrasound showed a single intrauterine of approximately 6 weeks and 0 days, and the heart rate is 113 bpm. No other acute abnormality was observed. Therefore maintain a complete pelvic rest with no physical, strenuous or sexual activities such as heavy lifting, sexual activity or straneous physical activity. Take Tylenol as needed for pain, and follow up with the [facility] physician Dr. Susan Mckeon in the next 3-5 days for reevaluation. Return to the ED immediately if symptoms get worse. Prescriptions: Acetaminophen [Tylenol] 500 mg PO Q6HR PRN #30 tablet PRN Reason: Pain , Severe (7-10) Referrals: SUSAN MCKEON MD [Staff Physician] - 3-5 Days Time of Disposition: 01:07 Print Language: [place]THER[place] IRISH
--- NOTE | 2020-09-08 00:13 | Ultrasound Report ---
US OB <= 14 weeks fetus INDICATION / CLINICAL INFORMATION: Pelvic pain - . TECHNIQUE: Transabdominal. COMPARISON: None available. FINDINGS: UTERUS: Appears within normal limits. GESTATIONAL SAC: Well-defined oval shape and intrauterine in location. YOLK SAC: No significant abnormality. EMBRYO/FETUS: - [place]-Rump Length = 3.2 cm - Heart Rate, beats per minute (if present) = 113 beats per minute ADNEXA: No significant abnormality. FREE FLUID: None. ADDITIONAL FINDINGS: None. IMPRESSION: 1. Single, living intrauterine with estimated sonographic age of 6 weeks 0 days. Signer Name: Jose Young MD Signed: 09/08/2020 12:08 AM Workstation Name: [id number]
== END 2020-09-08 01:20 | disposition home or self-care (01) ==
LOC: ED 18:06
DX: O26.891 Other specified pregnancy related conditions, first trimester (principal); R10.30 Lower abdominal pain, unspecified; Z79.899 Other long term (current) drug therapy; Z3A.01 Less than 8 weeks gestation of pregnancy
CPT/HCPCS: 36415; 76801; 80053; 81001; 83690; 84702; 85025

== ENCOUNTER 2021-04-23 02:24 | Inpatient (IN) | payer SELFPAY ==
[2021-04-23] MEDS ORDERED: D5W/LACTATED RINGERS 1,000 ML IV SCH ×2 (04:00→12:33)
[2021-04-23] MEDS ORDERED: FAMOTIDINE 20 MG/2 ML INJ IV ONE ×2 (05:19→08:00)
[2021-04-23] MEDS ORDERED: BICITRA ORAL LIQD 30ML PO ONE ×2 (05:19→08:00)
[2021-04-23] MEDS ORDERED: METOCLOPRAMIDE 10 MG/2 ML INJ IV ONE ×2 (05:19→08:00)
--- NOTE | 2021-04-23 05:29 | Ultrasound Report ---
OBSTETRIC ULTRASOUND INDICATION: COMPLETE OB SONOGRAM COMPARISON: No prior relevant imaging studies are available for comparison. TECHNIQUE: Transabdominal imaging was performed. FINDINGS: Single viable intrauterine is identified. lie: Cephalic. Heart rate: 148 bpm. measurements are as follows: Biparietal diameter 8.7 cm, 35 weeks 1 day Head circumference 31.4 cm, 35 weeks 2 days Abdominal circumference 33.7 cm, 37 weeks 4 days Femur length 6.8 cm, 35 weeks 1 day Estimated weight: 2945 g Amniotic fluid index is 2.5 cm, decreased. No placental abnormalities are seen. There is a grade 1 a nterior placenta. Cervix is closed measuring 4-5 cm. CONCLUSION: Single viable intrauterine currently in cephalic position with estimated weight at th is time of 6 pounds, 8 ounces. Amniotic fluid index is decreased at 2.5 cm. Signer Name: Aristides Archer MD Signed: 04/23/2021 5:25 AM Workstation Name: [id number]
[2021-04-23 05:51] LABS: Basophils % (Auto) 0.1 % (0.0-1.8); Eosinophils # (Auto) 0.2 K/mm3 (0.0-0.4); Hematocrit 34.8 % (30.3-42.9); Hemoglobin 11.3 gm/dl (10.1-14.3); Lymphocytes # (Auto) 2.8 K/mm3 (1.2-5.4); Lymphocytes % (Auto) 28.5 % (13.4-35.0); Mean Corpuscular HGB Conc 33 % (30-34); Mean Corpuscular Volume 90 fl (79-97); Monocytes # (Auto) 0.7 K/mm3 (0.0-0.8); Monocytes % (Auto) 7.4 % (0.0-7.3); Platelet Count 234 K/mm3 (140-440); Red Blood Count 3.85 M/mm3 (3.65-5.03); Red Cell Distribution Width 14.2 % (13.2-15.2)
[2021-04-23] MEDS ORDERED: OXYTOCIN DRIP 30 UNITS/500 ML BAG IV SCH ×2 (06:00→12:33)
[2021-04-23] MEDS: LACTATED RINGERS 1,000 ML IV SCH ×2 (06:03→07:53)
[2021-04-23 06:31] LABS: Hepatitis C Virus Antibody Nonreactive (NonReactive)
[2021-04-23] MEDS ORDERED: NalbUPHINE 10 MG/1 ML INJ IV PRN (07:15)
[2021-04-23] MEDS ORDERED: ACETAMINOPHEN 325 MG TAB PO PRN (07:15)
[2021-04-23] MEDS ORDERED: ePHEDrine SULFATE 50 MG/1 ML INJ IV PRN (07:15)
[2021-04-23] MEDS ORDERED: MINERAL OIL 30 ML ORAL LIQD PO PRN (07:15)
[2021-04-23] MEDS ORDERED: miSOPROStol 200 MCG TAB PR PRN (07:15)
[2021-04-23] MEDS ORDERED: ceFAZolin/STERILE WATER 2 GM/20 ML SYRINGE IV NR (08:00)
[2021-04-23] MEDS ORDERED: dexAMETHasone 20 MG/5 ML VIAL ONE (08:31)
[2021-04-23] MEDS ORDERED: BUPIVACAINE/PF (0.5%) 5 MG/1 ML 30 ML VIAL INFILTRATI ONE (08:31)
[2021-04-23] MEDS ORDERED: ONDANSETRON 4 MG/2 ML INJ ONE (08:31)
--- NOTE | 2021-04-23 08:53 | History and Physical Report ---
History of Present Illness Date of examination: 04/23/21 Date of admission: 04/23/21 02:25 Chief complaint: I'm having contractions History of present illness: Pt is a 26 year old who presents with complaint of contractions. Pt has had no care with this stating that it was too expensive. Pt had a with her first child in 2019. Pt presented and was having regular contractions and decreased variability. A BPP was ordered and ABDULLAHI was found to be 2.5. Past History Past Medical History: no pertinent history Past Surgical History: section Family/Genetic History: none Social history: - Obstetrical History Expected Date of Delivery: 05/08/21 Actual Gestation: 37 Week(s) 6 Day(s) : 4 Number of Living Children: 1 Medications and Allergies Allergies Allergy/AdvReac Type Severity Reaction Status Date / Time No Known Allergies Allergy Verified 09/07/20 18:07 Home Medications Medication Instructions Recorded Confirmed Last Taken Type Ferrous Sulfate [Feosol 325 MG tab] 325 mg PO BID 30 Days #60 tablet 05/29/19 Unknown Rx Acetaminophen [Tylenol] 500 mg PO Q6HR PRN #30 tablet 09/08/20 Unknown Rx Active Meds: Active Medications Acetaminophen (Acetaminophen 325 Mg Tab) 650 mg PO Q4H PRN PRN Reason: Pain, Mild (1-3) Cefazolin Sodium (Cefazolin/Sterile Water 2 Gm/20 Ml Syringe) 2 gm IV PREOP NR Stop: 04/23/21 20:00 Ephedrine Sulfate (Ephedrine Sulfate 50 Mg/1 Ml Inj) 10 mg IV Q2M PRN PRN Reason: Hypotension Dextrose/Lactated Ringer's (D5lr) 1,000 mls @ 150 mls/hr IV DIRECT ELPIDIO Last Admin: 04/23/21 03:35 Dose: 150 mls/hr Documented by: Lactated Ringer's (Lactated Ringers) 1,000 mls @ 2,250 mls/hr IV PREOP ELPIDIO Stop: 04/24/21 05:42 Last Admin: 04/23/21 07:53 Dose: 2,250 mls/hr Documented by: Oxytocin/Sodium Chloride (Pitocin/Ns 30 Unit/500ml) 30 units in 500 mls @ 0 mls/hr IV TITR ELPIDIO; Protocol Mineral Oil (Mineral Oil 30 Ml Oral Liqd) 30 ml PO QHS PRN PRN Reason: Constipation Misoprostol (Misoprostol 200 Mcg Tab) 800 mcg PA ONCE PRN PRN Reason: Uterine Bleeding Nalbuphine HCl (Nalbuphine 10 Mg/1 Ml Inj) 10 mg IV Q2H PRN PRN Reason: Pain, Moderate (4-6) Review of Systems All systems: negative Genitourinary: contractions - Vital Signs Vital signs: Vital Signs Pulse BP Pulse Ox 77 106/66 99 04/23/21 02:53 04/23/21 02:53 04/23/21 02:53 Temp Pulse Resp BP Pulse Ox 98.0 F 95 H 18 110/68 98 04/23/21 06:57 04/23/21 08:29 04/23/21 06:57 04/23/21 08:13 04/23/21 08:29 - Physical Exam Breasts: Cardiovascular: Regular rate, Normal S1, Normal S2 Lungs: Positive: Clear to auscultation, Normal air movement Abdomen: Positive: normal appearance, soft, normal bowel sounds. Negative: distention, tenderness Genitourinary (Female): Positive: normal external genitalia, normal perenium Vulva: both: normal Vagina: Positive: normal moisture. Negative: discharge Cervix: Negative: lesion, discharge Uterus: Positive: normal size, normal contour Adnexa: both: normal Anus/Rectum: Positive: normal perianal skin, heme negative. Negative: rectal mass, hemorrhoids Extremities: Deep Tendon Reflex Grade: Normal +2 - Obstetrical Cervical Dilatation: 1 Cervical Effacement Percentage: 50 station: -3 Uterine Contraction Pattern: Regular Uterine Contraction Intensity: Moderate Results Result Diagrams: 04/23/21 05:30 Abnormal lab results 04/23/21 Range/Units 05:30 [place] % (Auto) 7.4 H (0.0-7.3) % All other labs normal. Assessment and Plan IUP at 37 weeks here with contractions and oligohydramnios in the face of no care. Admit and consent for repeat . Consents signed and placed on chart.
[2021-04-23] MEDS ORDERED: ePHEDrine SULFATE 50 MG/1 ML INJ ONE (08:54)
[2021-04-23] MEDS ORDERED: WATER FOR IRRIG STERILE 1,500 ML BOTTLE IR ONE (09:00)
[2021-04-23] MEDS ORDERED: SODIUM CHLORIDE 0.9% IRR 1,500 ML BOTTLE IR ONE (09:00)
[2021-04-23] MEDS ORDERED: LACTATED RINGERS 1,000 ML ONE (09:25)
[2021-04-23] MEDS ORDERED: KETOROLAC 30 MG/1 ML INJ ONE (09:28)
--- NOTE | 2021-04-23 10:06 | Anesthesia Consultation ---
Anesthesia Consult and Med Hx Date of service: 04/23/21 - Airway Anesthetic Teeth Evaluation: Good ROM Head & Neck: Adequate Mental/Hyoid Distance: Adequate Mallampati Class: Class II Intubation Access Assessment: Probably Good - Pulmonary Exam CTA: Yes - Cardiac Exam Cardiac Exam: RRR - Pre-Operative Health Status ASA Pre-Surgery Classification: ASA2 Proposed Anesthetic Plan: Spinal - Pulmonary Hx Asthma: No COPD: No Hx Pneumonia: No - Cardiovascular System Hx Hypertension: No - Central Nervous System Hx Seizures: No Hx Psychiatric Problems: No - Endocrine Hx Renal Disease: No Hx End Stage Renal Disease: No Hx Hypothyroidism: No Hx Hyperthyroidism: No - Hematic Hx Anemia: No Hx Sickle Cell Disease: No - Other Systems Hx Alcohol Use: No
--- NOTE | 2021-04-23 10:07 | Progress Note ---
Spinal Anesthesia Block - Spinal Anesthesia Block Start Time: 08:40 Stop Time: 08:43 Performed by:: LIYA HIGHTOWER Procedure: Sitting, sterile chlorahexadine 0.5% prep/drape, 1% lidocaine skin local, 25G spinal needle + introducer at L3-4, + CSF, - Heme, [1.9 ml 0.5% bupivacaine + 10 mcg dexmedetomidine] injected, drape removed, patient positioned supine with left uterine displacement, and spinal level verified to be adequate prior to surgery.
--- NOTE | 2021-04-23 10:07 | Anesthesia Day of Surgery ---
Anesthesia Day of Surgery - Day of Surgery Patient Examined: Yes Patient H&P Reviewed: Yes Patient is NPO: Yes
--- NOTE | 2021-04-23 10:40 | Procedure Note ---
OB Delivery Note - Delivery Date of Delivery: 04/23/21 Surgeon: KRISTI MCKEON Estimated blood loss: 500cc - Section Preop diagnosis: repeat , other (oligohydramnios) Postop diagnosis: same section procedure: repeat low transverse Disposition: PACU Complications: none Narrative: see op report - Infant A at 1 minute: 9 at 5 minutes: 9 Gender: Female (6 pounds 13 ounces)
--- NOTE | 2021-04-23 10:41 | Operative Report ---
Operative Report Operative Report: Preoperative diagnosis: Intrauterine at approximately 37 weeks 2. Previous x1 3. No care 4. Oligohydramnios Postoperative diagnosis: Same Procedure: Repeat low transverse section, Surgeon: Dr. Susan Brasher EBL: 400 cc Urine output: 200 mL IV fluids: 1100 mL Findings: Viable female in the vertex presentation. Weight 6 lbs. 13 oz. Apgars 8 and 9. Otherwise normal pelvic anatomy Specimens: None Complications: None Procedure: The patient was admitted to the OR with IV running and in place. She was properly identified as herself. She was given spinal anesthesia in the OR without difficulty. She was placed in the dorsal supine position with a leftward tilt. A Mistry catheter was inserted. She was then prepped and draped in the normal sterile fashion. An Allis test was used to confirm adequate anesthesia. Once confirmed, the incision was made with the scalpel and carried to the underlying fascia using the scalpel and the Bovie. The fascia was incised in the midline and incision was extended bilaterally using the curved Merchant scissors. The fascia was then dissected from the underlying rectus muscles in a series of sharp and blunt dissection using the Merchant scissors. Muscles were in the in the midline sharply using Metzenbaum scissors and the peritoneum was entered into bluntly using the surgeon's fingers. A bladder blade was then placed into the incision to protect the bladder. Following this the bladder flap was created. Hysterotomy incision was then made in the scalpel. Upon uterine entry, the amniotic sac was ruptured for clear fluid. The was then delivered without difficulty. Her mouth and nose were suctioned on the field. The cord was clamped and cut and he was handed to the waiting NICU personnel. The uterus was then exteriorized and cleared of all clots and debris. The hysterotomy incision was then closed in a running locked fashion using 0 Vicryl. The abdomen was then copiously irrigated with warm normal saline. Following this the uterus was replaced into the abdominal cavity. At this point the muscles were reapproximated in the midline using individual sutures of 0 Vicryl. Following this the fascia was closed in a running fashion using 0 Vicryl. Tissue was then copiously irrigated. Retention sutures were placed in the subcutaneous fat tissue Skin was closed in a running fashion using 3-0 Monocryl. The sponge lap needle and instrument counts were correct 2. The patient tolerated the procedure well. She was taken to recovery in stable condition.
[2021-04-23] MEDS ORDERED: FLU VACC QUAD 2021-22(6MOS UP)/PF 60 MCG/0.5 ML SYRINGE IM ONE (12:00)
[2021-04-23] MEDS ORDERED: LANOLIN/ZINC/DIMETHICONE (LANSINOH) 7 GM TP PRN (12:33)
[2021-04-23] MEDS ORDERED: NALOXONE 0.4 MG/1 ML INJ IV PRN (12:33)
[2021-04-23] MEDS ORDERED: WITCH HAZEL/ GLYCERIN PAD TP PRN (12:33)
[2021-04-23] MEDS: oxyCODONE /ACETAMINOPHEN 5-325MG TAB PO PRN ×2 (17:17→21:16)
[2021-04-23 23:55] LABS: Hemoglobin 9.5 gm/dl (10.1-14.3)
[2021-04-24] MEDS: oxyCODONE /ACETAMINOPHEN 5-325MG TAB PO PRN ×3 (03:51→20:53)
[2021-04-24] MEDS: IBUPROFEN 800 MG TAB PO PRN (09:31)
--- NOTE | 2021-04-24 17:12 | Post Anesthesia Evaluation ---
- Post Anesthesia Evaluation Patient Participated: Yes Airway Patent: Yes Stable Respiratory Function: Yes Nausea/Vomiting: No Temp > 96.8F: Yes Pain Manageable: Yes Adequeate Hydration: Yes Anesthesia Complications: No Block Receding Appropriately: Yes
[2021-04-24] MEDS ORDERED: TETANUS,DIPH,PERTUSS(ACELL) VACCINE 0.5 ML SYRINGE IM ONE (19:30)
[2021-04-25] MEDS: oxyCODONE /ACETAMINOPHEN 5-325MG TAB PO PRN ×3 (03:17→17:17)
[2021-04-25] MEDS: IBUPROFEN 800 MG TAB PO PRN ×2 (05:19→13:09)
[2021-04-25 10:01] VITALS: BP 97/48
--- NOTE | 2021-04-25 10:40 | Progress Note ---
Assessment and Plan POD 1 s/p rcs with no care. Pt has no complaints. Will plan for discharge on today. Pt to follow up in my office. Subjective - Subjective Date of service: 04/25/21 Principal diagnosis: Repeat Interval history: Pt is a 26 year old who presents with complaint of contractions. Pt has had no care with this stating that it was too expensive. Pt had a with her first child in 2019. Pt presented and was having regular contractions and decreased variability. A BPP was ordered and ABDULLAHI was found to be 2.5. Patient reports: appetite normal, voiding normally, pain well controlled, ambulating normally [place]: doing well Objective - Vital Signs Latest vital signs: Vital Signs Temp Pulse Resp BP Pulse Ox Pulse Ox 04/25/21 08:01 97.8 F 59 L 18 97/48 98 04/25/21 05:18 98 04/25/21 03:15 98 04/25/21 01:25 98 04/24/21 23:59 98.1 F 61 16 101/53 99 04/24/21 23:00 98 04/24/21 21:40 98 04/24/21 19:35 98 04/24/21 16:06 97.6 F 18 102/58 Intake and Output 04/24/21 04/25/21 04/25/21 22:59 06:59 14:59 Intake Total 600 360 Balance 600 360 Intake: Oral 600 Intake, Free Water 360 Other: Total, Intake Amount 240 # Voids Void 1 1 - Exam Cardiovascular: Present: Regular rate, Normal S1, Normal S2 Lungs: Present: Clear to auscultation, Normal air movement Abdomen: Present: normal appearance, soft, normal bowel sounds Uterus: Present: normal, bogginess Extremities: Present: normal Incision: Present: normal, dry, intact, dressed
--- NOTE | 2021-04-25 10:44 | Discharge Summary ---
Providers - Providers Date of Admission: 04/23/21 02:25 Date of discharge: 04/25/21 Attending physician: KRISTI MCKEON 04/23/21 16:09 Consult to Case Management [CONS] Routine Services Needed at Discharge: Other Notified:: No Comment:: No care Primary care physician: KRISTI MCKEON Hospitalization Reason for admission: section, other (oligohydramnios/no care) Delivery: Procedure: repeat low transverse Laceration: none Incision: normal, dry, intact, dressed Other procedures: none complications: none Discharge diagnosis: IUP at term delivered baby: female Condition at discharge: Good Disposition: HOME / SELF CARE / HOMELESS Plan - Discharge Medications Prescriptions: Docusate Sodium [Colace] 100 mg PO BID #60 capsule Ibuprofen [Motrin] 800 mg PO Q8HR PRN #40 tablet PRN Reason: Pain, Mild (1-3) oxyCODONE /ACETAMINOPHEN [Percocet 5/325] 2 tab PO Q6HR PRN #40 tablet PRN Reason: Pain - Provider Discharge Summary Activity: routine, no sex for 6 weeks, no heavy lifting 4 weeks, no strenuous exercise Diet: routine Instructions: routine Additional instructions: [] Smoking cessation referral if applicable(refer to patient education folder for contact #) [] Refer to [facility] Booklet Call your doctor immediately for: * Fever > 100.5 * Heavy vaginal bleeding ( >1 pad per hour) * Severe persistent headache * Shortness of breath * Reddened, hot, painful area to leg or breast * Drainage or odor from incision. * Keep incision clean and dry at all times and follow doctor's instructions regarding bathing/showering - Follow up plan Follow up: KRISTI MCKEON MD [Primary Care Provider] - 14 Days
== END 2021-04-25 18:20 | disposition home or self-care (01) | DRG 787 ==
LOC: TRG 02:24 → APU 02:25 → OBSVTOIN 02:25 → APU 02:26 → TRG 07:24 → OB 12:00
PROVIDERS: ADMIT Obstetrics & Gynecology; ATTEND Obstetrics & Gynecology
PROC: 10D00Z1 Extraction of Products of Conception, Low, Open Approach (ICD-10-PCS; principal; 2021-04-23)
PROC: 3E0234Z Introduction of Serum, Toxoid and Vaccine into Muscle, Percutaneous Approach (ICD-10-PCS; 2021-04-24)
DX: O34.211 Maternal care for low transverse scar from previous cesarean delivery (principal); O41.03X0 Oligohydramnios, third trimester, not applicable or unspecified; Z3A.37 37 weeks gestation of pregnancy; Z37.0 Single live birth; Z23 Encounter for immunization; Z20.822 Contact with and (suspected) exposure to COVID-19
CPT/HCPCS: 36415; 59025; 76805; 85014; 85018; 85025; 86592; 86706; 86762; 86803; 86850; 86900; 86901; 87591; 87806; 90471; 90715; 96360; G0378; J0690; J1100; J1885; J2405; J2765; J3490; J7120; J7121; U0003